=== PATIENT | male | born 1980 | race Caucasian/White ===

== ENCOUNTER 2018-08-30 12:56 | Emergency (ER) | payer MEDICAID ==
[2018-08-30] MEDS: FLUORESCEIN STRIP LEFT EYE (15:38)
[2018-08-30] MEDS: OPHTHALMIC IRRIG SOLUTION 120 ML LEFT EYE (15:38)
[2018-08-30] MEDS: TETRACAINE 0.5% 4 ML OPH LEFT EYE (15:38)
[2018-08-30] MEDS: DIPHTH/TET/ACEL PERTUSS (ADULT) 0.5 ML VIAL IM* (16:15)
== END 2018-08-30 16:24 | disposition home or self-care (01) ==
LOC: FTE 12:56
DX: S05.92XA Unspecified injury of left eye and orbit, initial encounter (principal); X58.XXXA Exposure to other specified factors, initial encounter; Y92.9 Unspecified place or not applicable; Z23 Encounter for immunization
CPT/HCPCS: 90471; 90715; 99283-25